=== PATIENT | female | born 2000 | race Caucasian/White ===

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

== ENCOUNTER → 2024-08-12 | Outpatient (CLI) | payer MEDICAID ==
[2024-08-12 14:51] VITALS: BP 117/99; PULSE 113; RESP 16; TEMP 97.8; BMI 54.1
--- NOTE | 2024-08-12 15:49 | P.HPBAR ---
Bariatric H&P - History & Physicial H&P Date: 08/12/24 History & Physicial: Visit/CC: Initial Visit Patient initial contact: Initial weight: 138.799 kg Initial weight in pounds: 306.00 Height: 5 ft 3 in Initial BMI: 54.1 Last weight: Current weight: 138.799 kg Current weight in pounds: 306.00 Current BMI: 54.1 [place] body weight (based on NIH guidelines): 52.27 kg Excess body weight loss: 0.0% The patient is a 24 year-old F who presents for Bariatric Assessment. She saw poultry pinner may 2023 for high heart rate. Increase fluids from 80 to 120/140 oz. Blood work needed. EKG. Metabolism. Looking into the sleeve. She had Pesta and will need to look at what needs from last year. Labs. May need to go to [facility] for new insurance in November 2024. NO prior Egd. May benefit from EGD. Somehow increase 3 to 7 month new requirement. Past Medical History Additional Past Medical History / Comment(s): pcos, pilonidal cyst History of Any Multi-Drug Resistant Organisms: None Reported Past Surgical History: No Surgical Hx Reported Smoking Status: Never smoker Surgical - Exam Vital Signs Temp Pulse Resp BP 97.8 F 113 H 16 117/99 08/12/24 14:46 08/12/24 14:46 08/12/24 14:46 08/12/24 14:46 Bariatric Checklist Checklist: Plan: Checklist: EGD: 1. Hiatal hernia: 2. H. Pylori: HgbA1c: Vitamin D: Smoking: Primary care physician referral: Psychiatry clearance: Cardiology clearance: Sleep study: Diet journal: VTE risk score: VTE risk level: Rehab needs at discharge:
== END ==
LOC: BARWHC3 14:32
PROVIDERS: ATTEND Surgery Plastic and Reconstructive Surgery
DX: E66.01 Morbid (severe) obesity due to excess calories (principal); Z68.43 Body mass index [BMI] 50.0-59.9, adult
CPT/HCPCS: 99202